=== PATIENT | female | born 1995 | race Caucasian/White ===

== ENCOUNTER 2021-03-08 16:26 | Inpatient (IN) | payer BC ==
--- NOTE | 2021-03-08 19:51 | PCM.LDHP ---
L&D History of Present Illness - General Date of Service: 03/08/21 Admit Problem/Dx: Patient Status Order with Admit Dx/Problem 03/08/21 19:19 Patient Status [ADT] Routine Admission Diagnosis/Problem Admission Diagnosis/Problem Source of Information: Patient History Limitations: Reports: No Limitations - History of Present Illness Introduction:: Patient presents with regular contractions that are becoming more intense. She has had 2 previous c sections, planning a 3rd. She has breech presentation. She routinely receives care in [place] with Dr Lord. She denies vaginal bleeding or leakage of fluid. Location, : Reports: Abdomen Quality: Reports: Pressure Severity: Moderate - Related Data Allergies/Adverse Reactions: Allergies Allergy/AdvReac Type Severity Reaction Status Date / Time No Known Allergies Allergy Verified 03/08/21 19:18 Past Medical History - Past Surgical History HEENT Surgical History: Reports: None Cardiovascular Surgical History: Reports: None Respiratory Surgical History: Reports: None GI Surgical History: Reports: None Female Surgical History: Reports: Section (x2 2017, 2019) Male Surgical History: Reports: None Endocrine Surgical History: Reports: None Neurological Surgical History: Reports: None Musculoskeletal Surgical History: Reports: None Oncologic Surgical History: Reports: None Dermatological Surgical History: Reports: None Social & Family History - Family History Family Medical History: No Pertinent Family History H&P Review of Systems - Review of Systems: Review Of Systems: Comprehensive ROS is negative, except as noted in HPI. L&D Exam - Exam Exam: See Below - OB Specific Contraction Intensity: Moderate Movement: Active Heart Tones: Present Heart Tones per Min: 140 Heart Rate (FHR) Variability: Moderate (6-25 bpm) Presentation: Breech - Strange Score Strange Score Cervix Position: Midposition Strange Score Consistency: Soft Strange Score Effacement: >80% Strange Score Dilation: 3-4 cm Strange Score Infant's Station: -2 Strange Score Total: 9 - Exam General: Alert, Oriented Neck: Supple, Trachea Midline Lungs: Clear to Auscultation, Normal Respiratory Effort Cardiovascular: Regular Rate, Regular Rhythm GI/Abdominal Exam: Normal Bowel Sounds, Soft Back Exam: Normal Inspection Extremities: Pedal Edema (trace). No: Hortencia's Sign Skin: Warm, Dry, Intact Psychiatric: Alert, Normal Affect - Problem List (1) Previous delivery affecting SNOMED Code(s): 252443501, [id number] ICD Code: O34.219 - MATERNAL CARE FOR UNSP TYPE SCAR FROM PREVIOUS DEL Status: Acute Current Visit: Yes Problem List Initiated/Reviewed/Updated: Yes Orders Last 24hrs: Active Orders 24 hr Category Date Time Status Patient Status [ADT] Routine ADT 03/08/21 19:19 Active Non Stress Test [RC] PER UNIT ROUTINE Care 03/08/21 19:19 Active Up ad Magalys [RC] ASDIRECTED Care 03/08/21 19:19 Active Vaginal Exam [RC] Click to Edit Care 03/08/21 19:19 Active Vital Signs [RC] PER UNIT ROUTINE Care 03/08/21 19:19 Active Resuscitation Status Routine Resus Stat 03/08/21 19:19 Ordered Assessment/Plan Comment:: 37 week IUP Previous c section x 2, desires repeat Breech presentation Labor Given all ready 4 cm, breech presentation and regularly papo every 3-5 minutes--we are opting to proceed with repeat c section. She does not desire tubal ligation--this was not her plan in [place]. Risks of procedure discussed including infection, bleeding, possible trauma to surrounding bowel/bladder/ureter/blood vessels, risk for blood product transfusion and in rare life saving circumstances, need for hysterectomy. Risk for thromboembolic event and risk of anesthesia discussed. Patient voices her understanding and agrees to proceed. Proper consents obtained. Anesthesia and nursing software engineering supervisor notified.
[2021-03-08] MEDS: Lactated Ringers 1,000 ML IV SCH ×2 (19:55→21:25)
[2021-03-08] MEDS ORDERED: Sodium Chloride 0.9% 10 ML Syringe FLUSH PRN (19:57)
[2021-03-08] MEDS ORDERED: Sodium Chloride 0.9% 2.5 ML Syringe FLUSH PRN (19:57)
[2021-03-08] MEDS ORDERED: Citric Acid/Sodium Citrate Solution 30 ML Cup PO ONE (19:57)
[2021-03-08] MEDS ORDERED: ceFAZolin 1 GM in Premix Bag 1 BAG IV ONE (19:57)
[2021-03-08] MEDS ORDERED: Sodium Chloride 0.9% 10 ML SDV IV PRN (19:57)
[2021-03-08] MEDS ORDERED: Oxytocin/0.9 % Sodium Chloride 30 UNIT/500 ML BAG IV SCH (20:00)
[2021-03-08] MEDS ORDERED: Octyl 2-Cyanoacrylate 1 Tube ONE (20:44)
[2021-03-08] MEDS ORDERED: Morphine PF 10 MG/10 ML SDV ONE (22:00)
[2021-03-08] MEDS ORDERED: Oxytocin 10 Units/1 ML SDV ONE (22:06)
[2021-03-08] MEDS ORDERED: Ondansetron 4 MG/2 ML SDV ONE (22:06)
[2021-03-08] MEDS ORDERED: Glycopyrrolate 0.2 MG/ML SDV ONE (22:06)
[2021-03-08] MEDS ORDERED: ePHEDrine 50 MG/ML SDV ONE (22:06)
[2021-03-08] MEDS ORDERED: Tranexamic Acid 1,000 MG in Sodium Chloride 0.9% 100 ML IV PRN (22:30)
[2021-03-08] MEDS ORDERED: Oxytocin 10 Units/1 ML SDV IM PRN (22:30)
[2021-03-08] MEDS ORDERED: Acetaminophen/oxyCODONE 325-5 MG Tab PO PRN ×2 (22:30)
[2021-03-08] MEDS ORDERED: diphenhydrAMINE 50 MG/ML SDV IVPUSH PRN (22:30)
[2021-03-08] MEDS ORDERED: Lanolin 100% Cream 7 GM Tube TOP PRN (22:30)
[2021-03-08] MEDS ORDERED: Methylergonovine 0.2 MG/1 ML Amp IM PRN (22:30)
[2021-03-08] MEDS ORDERED: Lactated Ringers 1,000 ML IV SCH (22:30)
[2021-03-08] MEDS ORDERED: Bisacodyl 10 MG Supp RECTAL PRN (22:30)
--- NOTE | 2021-03-08 22:40 | PCM.OPNOTE ---
- General Post-Op/Procedure Note Date of Surgery/Procedure: 03/08/21 Operative Procedure(s): Repeat LTCS Findings: Viable female APGARs 9, 9 weight 6 lb 12 oz. Delivery intact placenta with 3V cord. Bicornuate uterus Pre Op Diagnosis: 37/1 week IUP. Labor. Breech presentation. Previous c section x 2, desires repeat Post-Op Diagnosis: 37/1 week IUP. Labor. Breech presentation. Previous c section x 2, desires repeat. Bicornuate uterus Anesthesia Technique: Spinal Primary Surgeon: Tabitha Camargo Fluid Replacement, Intraop: 1,800 EBL in mLs: 500 Complications: none known Condition: Stable Free Text/Narrative:: Dictation [id number]
--- NOTE | 2021-03-08 22:43 | PCM.PREANE ---
Preanesthetic Assessment - Anesthesia/Transfusion/Family Hx Anesthesia History: Prior Anesthesia Without Reaction Family History of Anesthesia Reaction: No Transfusion History: No Prior Transfusion(s) - Review of Systems General: No Symptoms Pulmonary: No Symptoms Cardiovascular: No Symptoms Gastrointestinal: No Symptoms Neurological: No Symptoms Other: Reports: None - Physical Assessment NPO Status Date: 03/08/21 NPO Status Time: 17:00 Vital Signs: Last Vital Signs Temp 36.5 C 03/08/21 22:30 Pulse 68 03/08/21 22:35 Resp 15 03/08/21 22:35 BP 108/65 03/08/21 22:35 Pulse Ox 98 03/08/21 22:35 Height: 1.65 m Weight: 82.554 kg ASA Class: 2E Mental Status: Alert & Oriented x3 Airway Class: Mallampati = 2 Dentition: Reports: Normal Dentition Thyro-Mental Finger Breadths: 3 Mouth Opening Finger Breadths: 3 ROM/Head Extension: Full Lungs: Clear to Auscultation, Normal Respiratory Effort Cardiovascular: Regular Rate, Regular Rhythm - Lab Values: Laboratory Last Values WBC 13.57 K/uL (4.0-11.0) H 03/08/21 20:10 RBC 3.84 M/uL (4.30-5.90) L 03/08/21 20:10 Hgb 10.3 g/dL (12.0-16.0) L 03/08/21 20:10 Hct 31.9 % (36.0-46.0) L 03/08/21 20:10 MCV 83.1 fL (80.0-98.0) 03/08/21 20:10 MCH 26.8 pg (27.0-32.0) L 03/08/21 20:10 MCHC 32.3 g/dL (31.0-37.0) 03/08/21 20:10 RDW Std Deviation 44.0 fl (28.0-62.0) 03/08/21 20:10 RDW Coeff of Roxy 15 % (11.0-15.0) 03/08/21 20:10 Plt Count 261 K/uL (150-400) 03/08/21 20:10 MPV 10.40 fL (7.40-12.00) 03/08/21 20:10 Nucleated RBC % 0.0 /100WBC 03/08/21 20:10 Nucleated RBCs # 0 K/uL 03/08/21 20:10 Cord ABG pH 7.266 (7.18-7.38) 03/08/21 21:54 Cord ABG Base Excess -3 (-10--2) 03/08/21 21:54 Cord VBG pH 7.356 (7.25-7.45) 03/08/21 21:54 Cord VBG Base Excess -2 (-10--2) 03/08/21 21:54 SARS-CoV-2 RNA (CLAUDIA) NEGATIVE (NEGATIVE) 03/08/21 20:12 Blood Type A POSITIVE 03/08/21 20:12 Antibody Screen NEGATIVE 03/08/21 20:12 - Allergies Allergies/Adverse Reactions: Allergies Allergy/AdvReac Type Severity Reaction Status Date / Time No Known Allergies Allergy Verified 03/08/21 19:18 - Blood Blood Available: Yes Product(s) Available: PRBC (Type and screen) - Anesthesia Plan Pre-Op Medication Ordered: Antacids - Acknowledgements Anesthesia Type Planned: Spinal Pt an Appropriate Candidate for the Planned Anesthesia: Yes Alternatives and Risks of Anesthesia Discussed w Pt/Guardian: Yes Pt/Guardian Understands and Agrees with Anesthesia Plan: Yes PreAnesthesia Questionnaire HEENT History: Reports: None Cardiovascular History: Reports: None Respiratory History: Reports: None Gastrointestinal History: Reports: None Genitourinary History: Reports: None [employer] History: Reports: Spontaneous Musculoskeletal History: Reports: None Neurological History: Reports: None Psychiatric History: Reports: None Endocrine/Metabolic History: Reports: None Hematologic History: Reports: None Immunologic History: Reports: None Oncologic (Cancer) History: Reports: None Dermatologic History: Reports: None - Infectious Disease History Infectious Disease History: Reports: Chicken Pox - Past Surgical History Head Surgeries/Procedures: Reports: None HEENT Surgical History: Reports: None Cardiovascular Surgical History: Reports: None Respiratory Surgical History: Reports: None GI Surgical History: Reports: None Female Surgical History: Reports: Section Other Female Surgeries/Procedures: C/S x2 in 2017 and 2019 Endocrine Surgical History: Reports: None Neurological Surgical History: Reports: None Musculoskeletal Surgical History: Reports: None Oncologic Surgical History: Reports: None Dermatological Surgical History: Reports: None - HOME MEDS Home Medications: Home Meds Pnv No.95/Ferrous Fum/Folic AC [ Vitamin Tablet] 1 each PO 03/08/21 [History] - CURRENT (IN HOUSE) MEDS Current Meds: Current Medications Bisacodyl (Bisacodyl 10 Mg Supp) 10 mg RECTAL ONETIME PRN PRN Reason: Constipation Diphenhydramine HCl (Diphenhydramine 50 Mg/Ml Sdv) 25 mg IVPUSH Q6H PRN PRN Reason: Itching or Nausea Docusate Sodium (Docusate Sodium 100 Mg Cap) 100 mg PO BID [facility] Emollient Ointment (Lanolin 100% Cream 7 Gm Tube) 0 gm TOP ASDIRECTED PRN PRN Reason: Sore Nipples Lactated Ringer's (Ringers, Lactated) 1,000 mls @ 500 mls/hr IV BOLUS [facility] Last Admin: 03/08/21 19:55 Dose: 500 mls/hr Documented by: Oxytocin/Sodium Chloride (Oxytocin 30 Unit In Ns 0.9% 500 Ml Premix) 30 unit in 500 mls @ 250 mls/hr IV TITRATE [facility] Lactated Ringer's (Ringers, Lactated) 1,000 mls @ 125 mls/hr IV ASDIRECTED [facility] Tranexamic Acid 1,000 mg/ (Sodium Chloride) 110 mls @ 660 mls/hr IV ONETIME PRN PRN Reason: Bleeding Ibuprofen (Ibuprofen 800 Mg Tab) 800 mg PO Q8H PRN PRN Reason: Cramping Ketorolac Tromethamine (Ketorolac 30 Mg/Ml Sdv) 30 mg IVPUSH Q6H [facility] Stop: 03/09/21 22:31 Methylergonovine Maleate (Methylergonovine 0.2 Mg/1 Ml Amp) 0.2 mg IM ONETIME PRN PRN Reason: Excessive Vaginal Bleeding Ondansetron HCl (Ondansetron 4 Mg/2 Ml Sdv) 4 mg IVPUSH Q4H PRN PRN Reason: Nausea/Vomiting Oxycodone/Acetaminophen (Acetaminophen/Oxycodone 325-5 Mg Tab) 1 tab PO Q4H PRN PRN Reason: Pain (severe 7-10) Oxycodone/Acetaminophen (Acetaminophen/Oxycodone 325-5 Mg Tab) 2 tab PO Q4H PRN PRN Reason: Pain (severe 7-10) Oxytocin (Oxytocin 10 Units/1 Ml Sdv) 10 unit IM ASDIRECTED PRN PRN Reason: Excessive Vaginal Bleeding Simethicone (Simethicone 80 Mg Tab.Chew) 160 mg PO QID YENNY Sodium Chloride (Sodium Chloride 0.9% 10 Ml Syringe) 10 ml FLUSH ASDIRECTED PRN PRN Reason: Keep Vein Open Sodium Chloride (Sodium Chloride 0.9% 2.5 Ml Syringe) 2.5 ml FLUSH ASDIRECTED PRN PRN Reason: Keep Vein Open Sodium Chloride (Sodium Chloride 0.9% 10 Ml Sdv) 10 ml IV ASDIRECTED PRN PRN Reason: IV Use Discontinued Medications Citric Acid/Sodium Citrate (Citric Acid/Sodium Citrate Solution 30 Ml Cup) 30 ml PO ONETIME ONE Stop: 03/08/21 19:58 Ephedrine Sulfate (Ephedrine 50 Mg/Ml Sdv) Confirm Administered Dose 50 mg .ROUTE .STK-MED ONE Stop: 03/08/21 22:07 Glycopyrrolate (Glycopyrrolate 0.2 Mg/Ml Sdv) Confirm Administered Dose 0.4 mg .ROUTE .STK-MED ONE Stop: 03/08/21 22:07 Cefazolin Sodium/Dextrose 1 gm (/ Premix) 50 mls @ 100 mls/hr IV ONETIME ONE Stop: 03/08/21 20:26 Cefazolin Sodium/Dextrose (Ancef 1 Gm/50 Ml) Confirm Administered Dose 50 mls @ as directed .ROUTE .STK-MED ONE Stop: 03/08/21 22:07 Miscellaneous Medication (Phenylephrine Hcl In 0.9% Nacl 1 Mg/10 Ml Syringe) Confirm Administered Dose 1 mg .ROUTE .STK-MED ONE Stop: 03/08/21 22:07 Octyl Cyanoacrylate (Octyl 2-Cyanoacrylate 1 Tube) Confirm Administered Dose 1 applic .ROUTE .STK-MED ONE Stop: 03/08/21 20:45 Ondansetron HCl (Ondansetron 4 Mg/2 Ml Sdv) Confirm Administered Dose 4 mg .ROUTE .STK-MED ONE Stop: 03/08/21 22:07 Oxytocin (Oxytocin 10 Units/1 Ml Sdv) Confirm Administered Dose 60 unit .ROUTE .STK-MED ONE Stop: 03/08/21 22:07
--- NOTE | 2021-03-08 22:44 | PCM.POSTAN ---
POST ANESTHESIA ASSESSMENT - MENTAL STATUS Mental Status: Alert, Oriented - VITAL SIGNS Vital Signs: Last Vital Signs Temp 36.5 C 03/08/21 22:30 Pulse 68 03/08/21 22:35 Resp 15 03/08/21 22:35 BP 108/65 03/08/21 22:35 Pulse Ox 98 03/08/21 22:35 - RESPIRATORY Respiratory Status: Respiratory Rate WNL, Airway Patent, O2 Saturation Stable - CARDIOVASCULAR CV Status: Pulse Rate WNL, Blood Pressure Stable - GASTROINTESTINAL GI Status: No Symptoms - POST OP HYDRATION Hydration Status: Adequate & Stable
[2021-03-08] MEDS ORDERED: Acetaminophen 1,000 MG in Premix Bag 1 BAG IV ONE (23:06)
[2021-03-08] MEDS: Ketorolac 30 MG/ML SDV IVPUSH SCH (23:08)
--- NOTE | 2021-03-08 23:23 | PCM48HPAN ---
Post Anesthesia Note - EVALUATION WITHIN 48HRS OF ANESTHETIC Vital Signs in Normal Range: Yes Patient Participated in Evaluation: Yes Respiratory Function Stable: Yes Airway Patent: Yes Cardiovascular Function Stable: Yes Hydration Status Stable: Yes Pain Control Satisfactory: Yes Nausea and Vomiting Control Satisfactory: Yes Mental Status Recovered: Yes Vital Signs: Last Vital Signs Temp 36.5 C 03/08/21 22:30 Pulse 68 03/08/21 23:05 Resp 15 03/08/21 23:05 BP 105/70 03/08/21 23:05 Pulse Ox 96 03/08/21 23:05
[2021-03-08] MEDS ORDERED: Famotidine 20 MG/2 ML SDV IVPUSH ONE (23:26)
[2021-03-09] MEDS ORDERED: Metoclopramide 10 MG/2 ML SDV IVPUSH ONE (01:24)
[2021-03-09] MEDS ORDERED: diphenhydrAMINE 50 MG/ML SDV IVPUSH ONE (01:25)
[2021-03-09] MEDS: Ketorolac 30 MG/ML SDV IVPUSH SCH ×4 (04:24→23:05)
[2021-03-09] MEDS: Simethicone 80 MG Tab.Chew PO SCH ×4 (04:27→18:21)
[2021-03-09] MEDS: Ondansetron 4 MG/2 ML SDV IVPUSH PRN ×2 (06:50→13:21)
[2021-03-09] MEDS ORDERED: Scopolamine 1.5 MG Transdermal Patch TRDERM PRN (09:18)
--- NOTE | 2021-03-09 11:21 | PCM.PNPP ---
- General Info Date of Service: 03/09/21 Functional Status: Reports: Pain Controlled, Tolerating Diet, Ambulating, Urinating - Review of Systems General: Reports: Fatigue. Denies: Fever, Weakness Pulmonary: Denies: Shortness of Breath Cardiovascular: Denies: Chest Pain, Palpitations, Lightheadedness Gastrointestinal: Reports: Nausea, Vomiting (has been improved this morning). Denies: Abdominal Pain Genitourinary: Denies: Flank Pain Musculoskeletal: Reports: No Symptoms Skin: Reports: No Symptoms Neurological: Reports: No Symptoms Psychiatric: Reports: No Symptoms - General Info Date of Service: 03/09/21 - Patient Data Vital Signs - Most Recent: Last Vital Signs Temp 35.9 C L 03/09/21 09:00 Pulse 64 03/09/21 09:00 Resp 16 03/09/21 09:00 BP 115/77 03/09/21 08:00 Pulse Ox 96 03/09/21 09:00 Weight - Most Recent: 82.554 kg I&O - Last 24 Hours: Intake & Output 03/08/21 03/09/21 03/09/21 22:59 06:59 14:59 Intake Total 1800 200 Balance 1800 200 Lab Results - Last 24 Hours: Laboratory Results - last 24 hr 03/08/21 03/08/21 03/08/21 Range/Units 20:10 20:12 20:12 WBC 13.57 H (4.0-11.0) K/uL RBC 3.84 L (4.30-5.90) M/uL Hgb 10.3 L (12.0-16.0) g/dL Hct 31.9 L (36.0-46.0) % MCV 83.1 (80.0-98.0) fL MCH 26.8 L (27.0-32.0) pg MCHC 32.3 (31.0-37.0) g/dL RDW Std Deviation 44.0 (28.0-62.0) fl RDW Coeff of Roxy 15 (11.0-15.0) % Plt Count 261 (150-400) K/uL MPV 10.40 (7.40-12.00) fL Nucleated RBC % 0.0 /100WBC Nucleated RBCs # 0 K/uL Cord ABG pH (7.18-7.38) Cord ABG Base Excess (-10--2) Cord VBG pH (7.25-7.45) Cord VBG Base Excess (-10--2) SARS-CoV-2 RNA (CLAUDIA) NEGATIVE (NEGATIVE) Blood Type A POSITIVE Antibody Screen NEGATIVE 03/08/21 03/09/21 Range/Units 21:54 05:30 WBC (4.0-11.0) K/uL RBC (4.30-5.90) M/uL Hgb 9.8 L (12.0-16.0) g/dL Hct 30.8 L (36.0-46.0) % MCV (80.0-98.0) fL MCH (27.0-32.0) pg MCHC (31.0-37.0) g/dL RDW Std Deviation (28.0-62.0) fl RDW Coeff of Roxy (11.0-15.0) % Plt Count (150-400) K/uL MPV (7.40-12.00) fL Nucleated RBC % /100WBC Nucleated RBCs # K/uL Cord ABG pH 7.266 (7.18-7.38) Cord ABG Base Excess -3 (-10--2) Cord VBG pH 7.356 (7.25-7.45) Cord VBG Base Excess -2 (-10--2) SARS-CoV-2 RNA (CLAUDIA) (NEGATIVE) Blood Type Antibody Screen Med Orders - Current: Current Medications Bisacodyl (Bisacodyl 10 Mg Supp) 10 mg RECTAL ONETIME PRN PRN Reason: Constipation Diphenhydramine HCl (Diphenhydramine 50 Mg/Ml Sdv) 25 mg IVPUSH Q6H PRN PRN Reason: Itching or Nausea Docusate Sodium (Docusate Sodium 100 Mg Cap) 100 mg PO BID [facility] Emollient Ointment (Lanolin 100% Cream 7 Gm Tube) 0 gm TOP ASDIRECTED PRN PRN Reason: Sore Nipples Lactated Ringer's (Ringers, Lactated) 1,000 mls @ 500 mls/hr IV BOLUS [facility] Last Admin: 03/08/21 21:25 Dose: 500 mls/hr Documented by: Oxytocin/Sodium Chloride (Oxytocin 30 Unit In Ns 0.9% 500 Ml Premix) 30 unit in 500 mls @ 250 mls/hr IV TITRATE [facility] Lactated Ringer's (Ringers, Lactated) 1,000 mls @ 125 mls/hr IV ASDIRECTED [facility] Tranexamic Acid 1,000 mg/ (Sodium Chloride) 110 mls @ 660 mls/hr IV ONETIME PRN PRN Reason: Bleeding Ibuprofen (Ibuprofen 800 Mg Tab) 800 mg PO Q8H PRN PRN Reason: Cramping Ketorolac Tromethamine (Ketorolac 30 Mg/Ml Sdv) 30 mg IVPUSH Q6H [facility] Stop: 03/09/21 22:31 Last Admin: 03/09/21 10:31 Dose: 30 mg Documented by: Methylergonovine Maleate (Methylergonovine 0.2 Mg/1 Ml Amp) 0.2 mg IM ONETIME PRN PRN Reason: Excessive Vaginal Bleeding Ondansetron HCl (Ondansetron 4 Mg/2 Ml Sdv) 4 mg IVPUSH Q4H PRN PRN Reason: Nausea/Vomiting Last Admin: 03/09/21 06:50 Dose: 4 mg Documented by: Oxycodone/Acetaminophen (Acetaminophen/Oxycodone 325-5 Mg Tab) 1 tab PO Q4H PRN PRN Reason: Pain (severe 7-10) Oxycodone/Acetaminophen (Acetaminophen/Oxycodone 325-5 Mg Tab) 2 tab PO Q4H PRN PRN Reason: Pain (severe 7-10) Oxytocin (Oxytocin 10 Units/1 Ml Sdv) 10 unit IM ASDIRECTED PRN PRN Reason: Excessive Vaginal Bleeding Scopolamine (Scopolamine 1.5 Mg Transdermal Patch) 1.5 mg TRDERM Q72H PRN PRN Reason: Nausea/Vomiting Last Admin: 03/09/21 09:35 Dose: 1.5 mg Documented by: Simethicone (Simethicone 80 Mg Tab.Chew) 160 mg PO QID [facility] Last Admin: 03/09/21 06:50 Dose: Not Given Documented by: Sodium Chloride (Sodium Chloride 0.9% 10 Ml Syringe) 10 ml FLUSH ASDIRECTED PRN PRN Reason: Keep Vein Open Sodium Chloride (Sodium Chloride 0.9% 2.5 Ml Syringe) 2.5 ml FLUSH ASDIRECTED PRN PRN Reason: Keep Vein Open Sodium Chloride (Sodium Chloride 0.9% 10 Ml Sdv) 10 ml IV ASDIRECTED PRN PRN Reason: IV Use Discontinued Medications Citric Acid/Sodium Citrate (Citric Acid/Sodium Citrate Solution 30 Ml Cup) 30 ml PO ONETIME ONE Stop: 03/08/21 19:58 Last Admin: 03/08/21 21:25 Dose: 30 ml Documented by: Diphenhydramine HCl (Diphenhydramine 50 Mg/Ml Sdv) 12.5 mg IVPUSH ONETIME ONE Stop: 03/09/21 01:26 Last Admin: 03/09/21 01:27 Dose: 12.5 mg Documented by: Ephedrine Sulfate (Ephedrine 50 Mg/Ml Sdv) Confirm Administered Dose 50 mg .ROUTE .STK-MED ONE Stop: 03/08/21 22:07 Famotidine (Famotidine 20 Mg/2 Ml Sdv) 20 mg IVPUSH ONETIME ONE Stop: 03/08/21 23:27 Last Admin: 03/08/21 23:50 Dose: 20 mg Documented by: Glycopyrrolate (Glycopyrrolate 0.2 Mg/Ml Sdv) Confirm Administered Dose 0.4 mg .ROUTE .STK-MED ONE Stop: 03/08/21 22:07 Cefazolin Sodium/Dextrose 1 gm (/ Premix) 50 mls @ 100 mls/hr IV ONETIME ONE Stop: 03/08/21 20:26 Last Admin: 03/08/21 21:25 Dose: 100 mls/hr Documented by: Cefazolin Sodium/Dextrose (Ancef 1 Gm/50 Ml) Confirm Administered Dose 50 mls @ as directed .ROUTE .STK-MED ONE Stop: 03/08/21 22:07 Acetaminophen (Ofirmev 1000 Mg/100 Ml) Confirm Administered Dose 100 mls @ as directed .ROUTE .STK-MED ONE Stop: 03/08/21 22:48 Acetaminophen 1,000 mg/ Premix 100 mls @ 400 mls/hr IV NOW ONE Stop: 03/08/21 23:20 Last Admin: 03/08/21 23:17 Dose: 400 mls/hr Documented by: Metoclopramide HCl (Metoclopramide 10 Mg/2 Ml Sdv) 10 mg IVPUSH ONETIME ONE Stop: 03/09/21 01:25 Last Admin: 03/09/21 01:37 Dose: 10 mg Documented by: Miscellaneous Medication (Phenylephrine Hcl In 0.9% Nacl 1 Mg/10 Ml Syringe) Confirm Administered Dose 1 mg .ROUTE .STK-MED ONE Stop: 03/08/21 22:07 Octyl Cyanoacrylate (Octyl 2-Cyanoacrylate 1 Tube) Confirm Administered Dose 1 applic .ROUTE .STK-MED ONE Stop: 03/08/21 20:45 Ondansetron HCl (Ondansetron 4 Mg/2 Ml Sdv) Confirm Administered Dose 4 mg .ROUTE .STK-MED ONE Stop: 03/08/21 22:07 Oxytocin (Oxytocin 10 Units/1 Ml Sdv) Confirm Administered Dose 60 unit .ROUTE .STK-MED ONE Stop: 03/08/21 22:07 - Interaction Support Person: - Recovery Exam Fundal Tone: Firm Fundal Level: 2 Fingerbreadths Below Umbilicus Fundal Placement: Midline Lochia Amount: Small Lochia Color: Rubra/Red Perineum Description: Intact, Minimal Bruising/Swelling Bladder Status: Indwelling Catheter in Place Urinary Elimination: Indwelling Catheter - Exam General: Alert, Oriented Lungs: Normal Respiratory Effort Cardiovascular: Regular Rate, Regular Rhythm GI/Abdominal Exam: Normal Bowel Sounds, Soft. No: Guarding, Rebound Extremities: Pedal Edema (trace). No: Hortencia's Sign Skin: Warm, Dry, Intact Wound/Incisions: Healing Well, No Drainage Neurological: No New Focal Deficit Psy/Mental Status: Alert, Normal Affect, Normal Mood - Problem List & Annotations (1) Previous delivery affecting SNOMED Code(s): 654594739, 640160874 Code(s): O34.219 - MATERNAL CARE FOR UNSP TYPE SCAR FROM PREVIOUS DEL Status: Acute Current Visit: Yes - Problem List Review Problem List Initiated/Reviewed/Updated: Yes - My Orders Last 24 Hours: My Active Orders 03/08/21 19:19 Patient Status [ADT] Routine Up ad Magalys [RC] ASDIRECTED Resuscitation Status Routine 03/08/21 19:57 Patient Status [ADT] Routine Insert Urinary Catheter [OM.PC] Routine Notify Provider Vital Signs [RC] PRN Procedure Site Prep Instruct [RC] ASDIRECTED Sodium Chloride 0.9% [Normal Saline] 10 ml IV ASDIRECTED PRN Sodium Chloride 0.9% [Saline Flush] 10 ml FLUSH ASDIRECTED PRN Sodium Chloride 0.9% [Saline Flush] 2.5 ml FLUSH ASDIRECTED PRN Peripheral IV Insertion Adult [OM.PC] Routine Schedule Procedure [COMM] Per Unit Routine Sequential Compression Device [OM.PC] Routine 03/08/21 19:58 Antiembolic Devices [RC] PER UNIT ROUTINE 03/08/21 20:00 Lactated Ringers [Ringers, Lactated] 1,000 ml IV BOLUS Oxytocin/0.9 % Sodium Chloride [Oxytocin 30 Unit in NS 0.9% 500 ML Premix] 30 unit in 500 ml IV TITRATE 03/08/21 20:10 RPR (SYPHILIS SERO) W/ RFLX [REF] Routine 03/08/21 22:30 Patient Status [ADT] Routine Ambulate [RC] PER UNIT ROUTINE Antiembolic Devices [RC] PER UNIT ROUTINE Communication Order [RC] PER UNIT ROUTINE Communication Order [RC] PER UNIT ROUTINE Communication Order [RC] Per Unit Routine May Shower [RC] ASDIRECTED Notify Provider Intake and Out [RC] ASDIRECTED Notify Provider Vital Signs [RC] ASDIRECTED RT Incentive Spirometry [RC] Q2HWA Vital Signs [RC] PER UNIT ROUTINE Acetaminophen/oxyCODONE [Percocet 325-5 MG] 1 tab PO Q4H PRN Acetaminophen/oxyCODONE [Percocet 325-5 MG] 2 tab PO Q4H PRN Ketorolac [Toradol] 30 mg IVPUSH Q6H Lactated Ringers [Ringers, Lactated] 1,000 ml IV ASDIRECTED Lanolin [Lansinoh HPA] See Dose Instructions TOP ASDIRECTED PRN Methylergonovine [Methergine] 0.2 mg IM ONETIME PRN Ondansetron [Zofran] 4 mg IVPUSH Q4H PRN Oxytocin [Pitocin] 10 unit IM ASDIRECTED PRN Tranexamic Acid [Cyklokapron] 1,000 mg Sodium Chloride 0.9% [Normal Saline] 100 ml IV ONETIME bisacodyL [Dulcolax] 10 mg RECTAL ONETIME PRN diphenhydrAMINE [Benadryl] 25 mg IVPUSH Q6H PRN Abdominal Binder [OM.PC] Routine Assess Lochia [WOMSER] Per Unit Routine Assess Uterine Involution [WOMSER] Per Unit Routine Breast Pump [WOMSER] Per Unit Routine Heat Therapy [OM.PC] Routine Ice Therapy [OM.PC] Routine Peripheral IV Discontinue [OM.PC] Routine Sequential Compression Device [OM.PC] Per Unit Routine 03/09/21 00:00 Simethicone 160 mg PO QID 03/09/21 09:00 Docusate Sodium [Colace] 100 mg PO BID 03/10/21 04:30 Ibuprofen [Motrin] 800 mg PO Q8H PRN - Assessment Assessment:: POD 1 status post repeat c section - Plan Plan:: Continue postoperative cares. Patient has nausea with percocet and tends to tolerated hydrocodone better. Will switch to this.
--- NOTE | 2021-03-09 12:06 | OR ---
SURGEON: Tabitha Camargo M.D. DATE OF PROCEDURE: 03/08/2021 PREOPERATIVE DIAGNOSES: 1. 37 and 1 week intrauterine . 2. Breech presentation. 3. Active labor. 4. Previous section x2, desires repeat. POSTOPERATIVE DIAGNOSES: 1. 37 and 1 week intrauterine . 2. Breech presentation. 3. Active labor. 4. Previous section x2, desires repeat. 5. Bicornuate uterus. PRIMARY SURGEON: Tabitha Camargo MD. ANESTHESIA: Spinal. ESTIMATED BLOOD LOSS: 500 mL. FLUIDS: 1800 mL crystalloid. COMPLICATIONS: None known. FINDINGS: Viable female. score 9 at one minute, 9 at five minutes. Weight of 6 pounds 12 ounces. Delivery, intact placenta, 3-vessel cord. Bicornuate uterus. DISPOSITION: The patient to PACU, infant to nursery. PROCEDURE DETAILS: Suzanna is a 25-year-old G4, P2, A1 at 37 and 1 weeks gestational age who presents this evening with regular contractions occurring every 7 minutes. The patient is routinely followed in [place], [place] by Dr. Lord, however, lives in [place]. With contractions initiating this afternoon, she presented to [facility] to be evaluated. On examination, patient was found to be 3 cm with known breech presentation being confirmed. The patient has had 2 previous deliveries and was planned for repeat this as well. With observation, the patient was found to be 4 cm, 80% effaced, -2 station and contractions becoming more intense occurring about every 5 minutes. After discussing options with the patient, she is agreeable to be admitted and planned repeat delivery since she has advanced dilation with regular contractions, known breech presentation. Risks of procedure have been discussed with her including infection; bleeding; possible trauma to the surrounding bowel, bladder, ureters; in case of excess blood loss, need for blood product transfusion; in rare lifesaving circumstances, need for hysterectomy; risk of thromboembolic event, risk of anesthesia. Proper consent obtained. The patient was taken to the operating room where she underwent spinal anesthetic, was then placed in dorsal supine position with a leftward tilt. SCDs to the lower extremities. Jimenez to gravity. She was prepped and draped in the usual sterile fashion. Time-out was performed. The patient received Ancef prophylactically. Anesthesia was tested and found to be adequate. Previous Pfannenstiel scars were now excised. Subcutaneous tissue was incised down to the level of the rectus fascia, which was incised in midline and lateralized on either side sharply and bluntly. Superior aspect of fascia was tented upwards, dissected sharply and bluntly away from underlying muscles. There was quite a bit of scar tissue along this plane inferiorly. The overlying rectus fascia was also dissected from underlying muscle. There was a scar tissue along this plane. The rectus muscles were in midline. Peritoneum entered. Rectus muscles and peritoneum were now lateralized bluntly. Uterine position and position palpated. Self-retaining tractor now gently placed. Uterovesical reflection was visualized. There is a fairly significant vessel coursing transversely across the lower uterine segment along the bladder. Therefore, with care, a bladder flap was created and the bladder was gently mobilized away from lower uterine segment without disrupting this vessel. A low-transverse hysterotomy was now performed. Uterine cavity was entered with blunt end of scalpel. Hysterotomy was lateralized bluntly. Amniotomy was performed. Clear fluid was returned. The buttocks were delivered to the midline. The lower extremities were delivered followed by the trunk, upper extremities, flexing the head with the delivery of the head. The infant's oropharynx and nares were bulb suctioned. After a delay, cord was clamped x2 and cut. Infant was handed off to attending layout worker with nursery staff at her side. Cord arterial, cord venous, cord blood sampling was obtained. The placenta was now delivered. Uterine cavity was cleared of all clot and debris. Hysterotomy was repaired using 0 Vicryl in continuous running locked fashion followed by a re-imbricating layer. Posterior aspect of the uterus was copiously irrigated. No defects or hematomas found be forming. Colonic gutters were cleared of all clot and debris, well irrigated and suction dried. The hysterotomy was once again inspected and found to be hemostatic. Self- retaining retractor now gently removed. Bladder blade was placed. Hysterotomy was once again inspected and found to be hemostatic. Uterus was firm. There was confirmed bicornuate uterus upon examination. The rectus muscle and peritoneum were now reapproximated using 0 Vicryl with inverted mattress suture technique. Anterior aspect of the muscle, posterior aspect of the fascia were closely inspected. Any areas of oozing were cauterized. The rectus fascia was now reapproximated using 0 Vicryl in continuous running fashion beginning laterally on either side and meeting in the midline. Subcutaneous tissues well irrigated and suction dried. Any areas of oozing were cauterized. Skin edges were reapproximated using 3-0 Vicryl on a Maico needle in subcuticular fashion followed by Dermabond. Sponge, instrument, and needle counts were correct x2. The patient tolerated the procedure well overall. She will go to PACU in stable condition, infant to nursery. SHANELLE / SHU /[id number]
[2021-03-09] MEDS: Docusate Sodium 100 MG Cap PO SCH ×2 (12:38→21:09)
[2021-03-09] MEDS ORDERED: Lactated Ringers 1,000 ML IV SCH (13:00)
[2021-03-10] MEDS ORDERED: Ibuprofen 800 MG Tab PO PRN (04:30)
[2021-03-10] MEDS: Simethicone 80 MG Tab.Chew PO SCH ×3 (06:29→18:28)
[2021-03-10] MEDS: Acetaminophen/HYDROcodone 325-5 MG Tab PO PRN ×3 (07:48→22:28)
[2021-03-10] MEDS: Docusate Sodium 100 MG Cap PO SCH ×2 (09:28→22:11)
== END 2021-03-10 22:35 | disposition home or self-care (01) | DRG 540 ==
LOC: MW.OB 16:26 → MW.OBCHECK 16:26 → MW.OB 19:57
PROVIDERS: ADMIT Obstetrics & Gynecology; ATTEND Obstetrics & Gynecology
PROC: 10D00Z1 Extraction of Products of Conception, Low, Open Approach (ICD-10-PCS; principal; 2021-03-08)
DX: O34.211 Maternal care for low transverse scar from previous cesarean delivery (principal); O32.1XX0 Maternal care for breech presentation, not applicable or unspecified; O34.03 Maternal care for unspecified congenital malformation of uterus, third trimester; Z20.822 Contact with and (suspected) exposure to COVID-19; Q51.3 Bicornate uterus; Z37.0 Single live birth; Z3A.37 37 weeks gestation of pregnancy
CPT/HCPCS: 01961; 36415; 59020; 59025; 82803; 85014; 85018; 85027; 86592; 86850; 86900; 86901; A9270-GY; J0131; J0690; J1200; J1885; J2270; J2370; J2405; J2590; J2765; J3490; J7120; U0002

== ENCOUNTER 2023-02-25 16:29 | Inpatient (IN) | payer OTHER ==
[2023-02-25] MEDS ORDERED: Sodium Chloride 0.9% 2.5 ML Syringe FLUSH PRN (16:33)
[2023-02-25] MEDS ORDERED: Sodium Chloride 0.9% 10 ML Syringe FLUSH PRN (16:33)
[2023-02-25] MEDS ORDERED: Sodium Chloride 0.9% 20 ML SDV IV PRN (16:33)
[2023-02-25] MEDS ORDERED: Lactated Ringers 1,000 ML IV SCH ×2 (16:45→19:30)
[2023-02-25] MEDS ORDERED: Morphine PF 10 MG/10 ML SDV ONE (17:01)
[2023-02-25] MEDS ORDERED: fentaNYL 100 MCG/2 ML SDV ONE (17:02)
[2023-02-25] MEDS ORDERED: Ketorolac 30 MG/ML SDV ONE (17:13)
[2023-02-25] MEDS ORDERED: Oxytocin 10 Units/1 ML SDV ONE ×2 (17:14→17:56)
[2023-02-25] MEDS ORDERED: Dexamethasone 4 MG/ML 5 ML MDV ONE (17:14)
[2023-02-25] MEDS ORDERED: Azithromycin 500 MG in Sodium Chloride 0.9% 250 ML IV ONE (17:14)
[2023-02-25] MEDS ORDERED: ceFAZolin 1 GM Vial ONE (17:14)
[2023-02-25] MEDS ORDERED: Phenylephrine 1% 10 MG/ML SDV ONE (17:15)
[2023-02-25] MEDS ORDERED: Ropivacaine 0.5% 5 MG/ML 30 ML SDV ONE (17:22)
[2023-02-25] MEDS ORDERED: Azithromycin 500 MG Vial ONE (17:22)
[2023-02-25 17:32] LABS: BASOPHILS ABSOLUTE AUTO 0.07 K/uL (0.00-0.20); BASOPHILS PERCENT AUTO 0.5 % (0.0-1.0); EOSINOPHILS ABSOLUTE AUTO 0.08 K/uL (0.00-0.45); EOSINOPHILS PERCENT AUTO 0.6 % (0.0-6.0); HEMATOCRIT 35.1 % (37.0-47.0); HEMOGLOBIN 11.5 g/dL (12.0-16.0); LYMPHOCYTES ABSOLUTE AUTO 2.91 K/uL (1.00-4.80); LYMPHOCYTES PERCENT AUTO 22.5 % (24.0-44.0); MEAN CORPUSCULAR HEMOGLOBIN 27.6 pg (28.0-32.0); MEAN CORPUSCULAR HGB CONC 32.8 g/dL (32.0-36.0); MEAN CORPUSCULAR VOLUME 84.2 fL (83.0-99.0); MEAN PLATELET VOLUME 10.4 fL (9.4-12.3); MONOCYTES ABSOLUTE AUTO 0.65 K/uL (0.00-0.80); NEUTROPHILS ABSOLUTE AUTO 9.2 K/uL (1.8-7.7); NEUTROPHILS PERCENT AUTO 71.2 % (41.0-71.0); PLATELET COUNT,PLT 228 K/uL (150-400); RED BLOOD CELL COUNT 4.17 M/uL (4.10-5.30); WHITE BLOOD CELL COUNT,WBC 12.95 K/uL (3.9-11.3)
[2023-02-25 17:36] LABS: BILIRUBIN,URINE NEGATIVE (NEGATIVE); COLOR,URINE YELLOW; GLUCOSE,URINE NEGATIVE (NEGATIVE); KETONES,URINE NEGATIVE (NEGATIVE); LEUKOCYTE ESTERASE,URINE LARGE (NEGATIVE); NITRITE,URINE NEGATIVE (NEGATIVE); OCCULT BLOOD,URINE NEGATIVE (NEGATIVE); PH,URINE 6.5 (5.0-8.0); PROTEIN,URINE NEGATIVE (NEGATIVE); UROBILINOGEN,URINE 0.2 EU/dL (<2.0)
[2023-02-25 17:40] LABS: APPEARANCE,URINE SLT CLOUDY
[2023-02-25] MEDS ORDERED: Ondansetron 4 MG/2 ML SDV ONE (17:53)
[2023-02-25] MEDS ORDERED: droPERidol 5 MG/2 ML SDV ONE (17:54)
[2023-02-25] MEDS ORDERED: Metoclopramide 10 MG/2 ML SDV IVPUSH PRN (18:04)
[2023-02-25] MEDS ORDERED: HYDROmorphone 1 MG/ML Syringe IVPUSH PRN (18:04)
[2023-02-25] MEDS ORDERED: diphenhydrAMINE 50 MG/ML SDV IVPUSH PRN ×2 (18:04→19:27)
[2023-02-25] MEDS ORDERED: fentaNYL 50 MCG/ML SDV IVPUSH PRN ×2 (18:04)
[2023-02-25] MEDS ORDERED: Albuterol 0.083% 2.5 MG/3 ML Neb Soln NEB PRN (18:04)
[2023-02-25] MEDS ORDERED: Naloxone 0.4 MG/ML SDV IVPUSH PRN (18:04)
[2023-02-25] MEDS ORDERED: Ondansetron 4 MG/2 ML SDV IVPUSH PRN ×3 (18:04→19:27)
[2023-02-25] MEDS ORDERED: ePHEDrine 50 MG/ML SDV IVPUSH PRN (18:04)
[2023-02-25] MEDS ORDERED: droPERidol 5 MG/2 ML SDV IVPUSH PRN ×2 (18:04→19:00)
[2023-02-25] MEDS ORDERED: Morphine 2 MG/ML SYRINGE IVPUSH PRN (18:04)
[2023-02-25] MEDS ORDERED: Acetaminophen/oxyCODONE 325-5 MG Tab PO PRN ×2 (18:04→19:27)
[2023-02-25] MEDS ORDERED: Tranexamic Acid 1,000 MG/10 ML Vial ONE (18:09)
[2023-02-25] MEDS ORDERED: Phenylephrine HCl 0.5 MG/5 ML AMP ONE (18:16)
[2023-02-25] MEDS ORDERED: Methylergonovine 0.2 MG/1 ML Amp IM PRN (19:27)
[2023-02-25] MEDS ORDERED: Misoprostol 200 MCG Tab RECTAL PRN (19:27)
[2023-02-25] MEDS ORDERED: Lanolin 100% Cream 7 GM Tube TOP PRN (19:27)
[2023-02-25] MEDS ORDERED: Oxytocin 10 Units/1 ML SDV IM PRN (19:27)
[2023-02-25] MEDS ORDERED: Bisacodyl 10 MG Supp RECTAL PRN (19:27)
[2023-02-25] MEDS: Docusate Sodium 100 MG Cap PO SCH (20:36)
[2023-02-25] MEDS ORDERED: Ketorolac 30 MG/ML SDV IVPUSH SCH (23:00)
[2023-02-26] MEDS: Ketorolac 30 MG/ML SDV IVPUSH SCH ×4 (00:51→19:51)
[2023-02-26] MEDS: Acetaminophen 1,000 MG in Premix Bag 1 BAG IV SCH ×3 (01:55→13:05)
[2023-02-26 06:49] LABS: HEMATOCRIT 30.9 % (37.0-47.0)
[2023-02-26] MEDS: Docusate Sodium 100 MG Cap PO SCH ×2 (08:15→20:14)
[2023-02-26] MEDS ORDERED: Aluminum Hydroxide/Magnesium Hydroxide/Simethicone XS Susp 30 ML Cup PO PRN (18:49)
[2023-02-26] MEDS ORDERED: Ibuprofen 800 MG Tab PO PRN (23:00)
[2023-02-27] MEDS: Acetaminophen/oxyCODONE 325-5 MG Tab PO PRN ×2 (02:48→08:40)
[2023-02-27] MEDS: Docusate Sodium 100 MG Cap PO SCH (08:42)
== END 2023-02-27 15:43 | disposition home or self-care (01) | DRG 788 ==
LOC: MW.OBCHECK 16:29 → MW.OB 16:31 → OBSVTOIN 17:54 → MW.OBCHECK 18:02 → MW.OB 21:42
PROVIDERS: ADMIT Obstetrics & Gynecology; ATTEND Obstetrics & Gynecology
PROC: 10D00Z1 Extraction of Products of Conception, Low, Open Approach (ICD-10-PCS; principal; 2023-02-25)
DX: O60.14X0 Preterm labor third trimester with preterm delivery third trimester, not applicable or unspecified (principal); O34.211 Maternal care for low transverse scar from previous cesarean delivery; Z37.0 Single live birth; O32.1XX0 Maternal care for breech presentation, not applicable or unspecified; Z3A.36 36 weeks gestation of pregnancy; O34.03 Maternal care for unspecified congenital malformation of uterus, third trimester; Q51.3 Bicornate uterus; O69.81X0 Labor and delivery complicated by cord around neck, without compression, not applicable or unspecified; Z98.890 Other specified postprocedural states
CPT/HCPCS: 36415; 81003; 85014; 85018; 85025; 86592; 86850; 86900; 86901; A9270-GY; J0131; J0456; J0690; J1100; J1200; J1790; J1885; J2274; J2371; J2405; J2590; J2795; J3010; J3490; J7120